=== PATIENT | female | born 1995 | race Caucasian/White ===

== ENCOUNTER 2018-01-26 09:10 | Emergency (ER) | payer MEDICAID ==
[~2018-01-26] VITALS: Ht 160 cm; Wt 54.4 kg
--- NOTE | 2018-01-26 09:15 | NUR ---
[id number] FROM HOME, WOKE UP WITH LT EAR PAIN RADIATES TO NECK, NO TRAUMA. +C-COLLAR UPON ARRIVAL. A/OX 4, BREATHING EVEN AND UNLABORED. NO SOB, NAD, VITALS STABLE. SAFETY AND COMFORT MEASURES IN PLACE. AWAITING MD ORDERS.
[2018-01-26] MEDS ORDERED: LORAZEPAM 1 MG TABLET ONE (09:21)
[2018-01-26] MEDS ORDERED: ACETAMINOPHEN ES 500 MG TABLET ONE (09:21)
--- NOTE | 2018-01-26 09:26 | NUR ---
PATIENT MEDICATED PER MD ORDERS.
[2018-01-26] MEDS ORDERED: ACETAMINOPHEN ES 500 MG TABLET PO ONE (09:30)
[2018-01-26] MEDS ORDERED: LORAZEPAM 1 MG TABLET PO ONE (09:30)
[2018-01-26 10:09] VITALS: BP 124/66
--- NOTE | 2018-01-26 10:10 | NUR ---
Soft cervical collar applied per Dr. El. Patient discharged to home in stable condition. Written and verbal after care instructions given. Patient verbalizes understanding of instruction.
== END 2018-01-26 10:09 | disposition home or self-care (01) ==
LOC: ER 09:11
DX: S13.4XXA Sprain of ligaments of cervical spine, initial encounter (principal); X58.XXXA Exposure to other specified factors, initial encounter; Y93.89 Activity, other specified; Y92.89 Other specified places as the place of occurrence of the external cause; Y99.8 Other external cause status
CPT/HCPCS: 99283; A4606; Z7610